=== PATIENT | male | born 1990 | race Caucasian/White ===

== ENCOUNTER 2016-10-10 22:27 | Emergency (ER) | payer OTHER ==
--- NOTE | 2016-10-11 02:00 | ED NURSING NOTES ---
Clinical Report - Nurses [facility] [address] [place] [address] 10/10/2016 22:30 Patient: VESTA POE TRIAGE Triage time 00:38. Acuity: LEVEL 4. Chief Complaint: DOG BITE. --00:48 Edmundo Kahn R.N. 00:38 10/11/16. BP: 116/65. HR: 50. RR: 16. O2 saturation: 100%. Temp: 97.5 F. Pain level now: 05/27. --00:48 Edmundo Kahn R.N. Weight: 90.7 kg stated. Height/Length: 71 inches Per Patient. BMI: 27.9. --00:45 Edmundo Kanh R.N. Medications None. --00:43 Edmundo Kahn R.N. Allergies No Known Drug Allergy. --00:43 Edmundo Kahn R.N. History Arrived by private vehicle. Historian: patient. ( Was trying to retrieved his dog back as it ran off to the neighbor's yard using a shock collar when the dog bit him on his right hand.). Location of injuries: dorsal left hand. This occurred just prior to arrival. Circumstances: This was a "provoked" attack. Patient approached the animal. The animal reportedly appeared well and is up to date on immunizations. 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 PAST MEDICAL HX: Negative. Tetanus status: unknown. SOCIAL HX: Light tobacco smoker- less than 1/2 a pack per day. Occasional alcohol use; consumes beer occasionally. --00:48 Edmundo Kahn R.N. Interventions ID band on patient. To room. --00:48 Edmundo Kahn R.N. PHYSICAL ASSESSMENT Ambulatory to room. GENERAL / NEURO / PSYCH: Alert. Oriented X 4. Appears in no acute distress. RESPIRATORY: Respirations not labored. Breath sounds within normal limits. CVS: Normal heart rate and rhythm. Pulses within normal limits. Capillary refill less than 2 seconds. EXTREMITIES: Dorsal right hand: multiple abrasions, laceration with controlled bleeding and multiple puncture wounds. SKIN: Skin is warm and dry. No signs or symptoms of infection. --00:49 Edmundo Kahn R.N. NURSING PROGRESS NOTES Call light placed in reach. Side rails up. Bed placed in lowest position. Brakes of bed on. Patient ready for evaluation- ED physician notified. --00:50 Edmundo Kahn R.N. 01:22 10/11/2016 Augmentin (Amoxicillin-Pot Clavulanate) PO Tablets 875 mg given. Allergies verified and confirmed 5 rights. --01:22 Melany Madison R.N. 01:40. Wound cleansed with sterile saline and chlorhexidine. Wound irrigated with 500 mL sterile NS using a high-pressure irrigation system; patient tolerated procedure well. --02:08 Jessica Obando. DISPOSITION / DISCHARGE Departure time: 0208. Condition at departure: improved and stable. No learning barriers present. Discharge instructions provided and reviewed with the patient. Reviewed medication(s) side effects, precautions, dosing and course information. Prescription(s) given to the patient. Work note given. Patient verbalized understanding. Written instructions provided in Upper Sorbian. The patient was discharged home and unaccompanied at time of discharge. He left the Emergency Department ambulatory and via private vehicle. Patient driving. --02:15 Melany Madison R.N. 02:13 10/11/16. BP: deferred. HR: deferred. RR: deferred. O2 saturation: deferred. Temp: deferred. Pain level now deferred. --02:15 Melany Madison R.N. Locked/Released at 10/11/2016 2:30 by Melany Madison R.N.
--- NOTE | 2016-10-11 02:00 | ED CLINICAL REPORT ---
Clinical Report - Physicians/Mid Levels [facility] [address] [place] [address] 10/10/2016 22:30 Patient: VESTA POE Time Seen: 0055. Arrived- By private vehicle. Historian- patient. HISTORY OF PRESENT ILLNESS Chief Complaint: DOG BITE. Location of injuries- right hand. The injury occurred just prior to arrival. The animal reportedly appeared well, is up to date on immunizations and can be observed for ten days. Occurred at home. (reports the dog's shock collar might not be working appropriately). No difficulty breathing. 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 REVIEW OF SYSTEMS The patient has had swelling. No numbness, weakness, tingling or chest pain. All systems otherwise negative, except as recorded above. PAST HISTORY See nurses notes. Tetanus immunization status is up-to-date. Problems: no known problems. Medications: None. Allergies: No Known Drug Allergy. SOCIAL HISTORY Never smoker. No alcohol use or drug use. Is a local resident. ADDITIONAL NOTES The nursing notes have been reviewed. PHYSICAL EXAM Vital Signs: 10/11/2016 00:38 BP: 116/65. HR: 50. RR: 16. O2 saturation: 100%. Temp: 97.5 F. Pain level now: 2/10. Blood pressure normal. Oxygen saturation normal. Appearance: Alert. Oriented X3. No acute distress. Head: Head normal on inspection and non-tender. No Velazquez's sign or raccoon eyes. Neck: Normal inspection. Neck non-tender. Painless ROM. CVS: Heart sounds normal. Pulses normal. Respiratory: Chest normal on inspection. Breath sounds normal. Chest nontender. Abdomen: Normal inspection. Soft and nontender. Bowel sounds normal. Skin: Skin intact. Skin warm and dry. Normal skin color. Normal skin turgor. Extremities: (superficial abrasions noted to the dorsum of the right hand. Small 0.5 cm laceration to the wrist with about involvement of the joint. Only subcutaneous tissue exposed. Able to see the base of the wound. No tendon involvement. Bleeding is controlled. No foreign bodies.). LABS, X-RAYS, AND EKG Rt Hand X-ray: (PROCEDURE: XR HAND 3 OR 4 VIEWS - RIGHT INDICATION: TRAUMA/INJURY TECHNIQUE: Three views COMPARISON: None. FINDINGS: There is mild soft tissue swelling of the dorsum of the hand but no radiopaque foreign body. No fracture or dislocation. Normal joint spaces. IMPRESSION: 1. Soft tissue swelling.). The X-rays were independently viewed by me and interpreted by the radiologist. The X-rays were discussed with the radiologist (via phone). PROGRESS AND PROCEDURES Course of Care: The patient is a pleasant 26-year-old male presented for a vaginal dogbite to the right hand. Patient will be evaluated for any osseous other maladies as a result of the patient's dog biting him. Patient is agreeable to the treatment and plan. no neurovascular compromise. Compartments are soft. The patient's workup was remarkable for the findings above. No acute osseous maladies noted. Because of the patient's negative radiograph and no radiopaque foreign bodies, do not fill further intervention is warranted at this time. Wounds have been irrigated emergency department. The small laceration noted on the patient's wrist should not be closed secondary to wound infection risk. On inspection, if the patient did have a stitch placed, would completely close the wound and predispose at 2 infection. Because of the patient's dogbite, Augmentin was provided here in the emergency department. On initial presentation pain medication as been offered but declined by the patient. Discussed with the patient is workup here in the emergency department including diagnosis, home care, follow-up, and return Also discussed wound infection risk. All questions have been answered. The patient expressed understanding of these instructions and was agreeable to them. Disposition: Discharged. Condition: good. CLINICAL IMPRESSION Multiple dog bites to the right wrist and right hand. Multiple deep lacerations to the left wrist and left hand. (acute). No foreign body present. INSTRUCTIONS Warnings: INFECTION: Watch for signs of infection (increasing heat and redness, pus-like drainage, swelling, or increased pain). Return or see your doctor if these signs occur. GENERAL WARNINGS: Return or contact your physician immediately if your condition worsens or changes unexpectedly, if not improving as expected, or if other problems arise. Specifically return if pain, vomiting, bleeding, breathing difficulty or fever. Your Current Medications: CONTINUE TAKING THE FOLLOWING MEDICATIONS: None*. Prescription Medications: Augmentin 875 mg: take 1 tablet orally every 12 hours for 10 days. No refill. Substitution is permissible. (disp 20 tabs) OTC Medications: Acetaminophen (available over the counter): take according to label instructions. Motrin (available over the counter): take according to label instructions. Follow-up: Return to the emergency department as needed. Follow up with your doctor in five days. Reason for referral: recheck today's concerns. Summary of care provided to patient via paper. Screening today revealed the patient's blood pressure to be in the normal range. The patient should follow up with a primary care provider for blood pressure management. Understanding of the discharge instructions verbalized by patient. (Electronically signed by Zeke Fernandes Dr. 10/14/2016 4:59)
--- NOTE | 2016-10-11 02:00 | ED ORDER SUMMARY ---
..... Patient: VESTA POE OrderSheet [facility] VisitID: [id number] [place] [address] 26y, M Registration Date/Time: 10/10/2016 ORDER SHEET Weight: 90.7 kg (stated) Allergies: No Known Drug Allergy GENERAL ORDERS: Hand 3 or 4V Right Urgent (01:02 10/11/2016 Erica Rogers) (Ack 1:04 Darwiner) (1:27 Toña) Irrigate Wounds (01:02 10/11/2016 Erica Rogers) (Ack 1:31 RCollier R.N.) (2:03 CBraduriah R.N.) Ice (01:02 10/11/2016 Erica Rogers) (Ack 1:31 RCollier R.N.) (2:03 CBradburn R.N.) MEDICATION ORDERS: Augmentin PO 875 mg (NOW) (01:07 10/11/2016 Erica Rogers) (Ack 1:20 CBradburn R.N.) (1:22 CBradburn R.N.) IV FLUIDS: ORDER SHEET NOTES: [Electronically signed by Melany Madison R.N. (02:30 10/11/2016)] [Electronically signed by Zeke Fernaneds Dr. (04:59 10/14/2016)] [Electronically locked/signed by Melany Madison R.N. (02:30 10/11/2016)]
--- NOTE | 2016-10-11 02:00 | ED ORDER SUMMARY ---
..... Patient: VESTA POE OrderSheet [facility] VisitID: [id number] [place] [address] 26y, M Registration Date/Time: 10/10/2016 ORDER SHEET Weight: 90.7 kg (stated) Allergies: No Known Drug Allergy GENERAL ORDERS: Hand 3 or 4V Right Urgent (01:02 10/11/2016 Erica Rogers) (Ack 1:04 Darwiner) (1:27 Toña) Irrigate Wounds (01:02 10/11/2016 Erica Rogers) (Ack 1:31 RCollier R.N.) (2:03 CBraduriah R.N.) Ice (01:02 10/11/2016 Erica Rogers) (Ack 1:31 RCollier R.N.) (2:03 CBradburn R.N.) MEDICATION ORDERS: Augmentin PO 875 mg (NOW) (01:07 10/11/2016 Erica Rogers) (Ack 1:20 CBradburn R.N.) (1:22 CBradburn R.N.) IV FLUIDS: ORDER SHEET NOTES: [Electronically signed by Melany Madison R.N. (02:30 10/11/2016)] [Electronically signed by Zeke Fernandes Dr. (04:59 10/14/2016)] [Electronically locked/signed by Melany Madison R.N. (02:30 10/11/2016)]
--- NOTE | 2016-10-11 02:00 | ED NURSING NOTES ---
Clinical Report - Nurses [facility] [address] [place] [address] 10/10/2016 22:30 Patient: VESTA POE TRIAGE Triage time 00:38. Acuity: LEVEL 4. Chief Complaint: DOG BITE. --00:48 Edmundo Kahn R.N. 00:38 10/11/16. BP: 116/65. HR: 50. RR: 16. O2 saturation: 100%. Temp: 97.5 F. Pain level now: 05/27. --00:48 Edmundo Kahn R.N. Weight: 90.7 kg stated. Height/Length: 71 inches Per Patient. BMI: 27.9. --00:45 Edmundo Kahn R.N. Medications None. --00:43 Edmundo Kahn R.N. Allergies No Known Drug Allergy. --00:43 Edmundo Kahn R.N. History Arrived by private vehicle. Historian: patient. ( Was trying to retrieved his dog back as it ran off to the neighbor's yard using a shock collar when the dog bit him on his right hand.). Location of injuries: dorsal left hand. This occurred just prior to arrival. Circumstances: This was a "provoked" attack. Patient approached the animal. The animal reportedly appeared well and is up to date on immunizations. 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 PAST MEDICAL HX: Negative. Tetanus status: unknown. SOCIAL HX: Light tobacco smoker- less than 1/2 a pack per day. Occasional alcohol use; consumes beer occasionally. --00:48 Edmundo Kahn R.N. Interventions ID band on patient. To room. --00:48 Edmundo Kahn R.N. PHYSICAL ASSESSMENT Ambulatory to room. GENERAL / NEURO / PSYCH: Alert. Oriented X 4. Appears in no acute distress. RESPIRATORY: Respirations not labored. Breath sounds within normal limits. CVS: Normal heart rate and rhythm. Pulses within normal limits. Capillary refill less than 2 seconds. EXTREMITIES: Dorsal right hand: multiple abrasions, laceration with controlled bleeding and multiple puncture wounds. SKIN: Skin is warm and dry. No signs or symptoms of infection. --00:49 Edmundo Kahn R.N. NURSING PROGRESS NOTES Call light placed in reach. Side rails up. Bed placed in lowest position. Brakes of bed on. Patient ready for evaluation- ED physician notified. --00:50 Edmundo Kahn R.N. 01:22 10/11/2016 Augmentin (Amoxicillin-Pot Clavulanate) PO Tablets 875 mg given. Allergies verified and confirmed 5 rights. --01:22 Melany Madison R.N. 01:40. Wound cleansed with sterile saline and chlorhexidine. Wound irrigated with 500 mL sterile NS using a high-pressure irrigation system; patient tolerated procedure well. --02:08 Jessica Obando. DISPOSITION / DISCHARGE Departure time: 0208. Condition at departure: improved and stable. No learning barriers present. Discharge instructions provided and reviewed with the patient. Reviewed medication(s) side effects, precautions, dosing and course information. Prescription(s) given to the patient. Work note given. Patient verbalized understanding. Written instructions provided in Malay. The patient was discharged home and unaccompanied at time of discharge. He left the Emergency Department ambulatory and via private vehicle. Patient driving. --02:15 Melany Madison R.N. 02:13 10/11/16. BP: deferred. HR: deferred. RR: deferred. O2 saturation: deferred. Temp: deferred. Pain level now deferred. --02:15 Melany Madison R.N. Locked/Released at 10/11/2016 2:30 by Melany Madison R.N.
--- NOTE | 2016-10-11 05:57 | DIAGNOSTIC IMAGING REPORT ---
PROCEDURE: XR HAND 3 OR 4 VIEWS - RIGHT INDICATION: TRAUMA/INJURY TECHNIQUE: Three views COMPARISON: None. FINDINGS: There is mild soft tissue swelling of the dorsum of the hand but no radiopaque foreign body. No fracture or dislocation. Normal joint spaces. IMPRESSION: 1. Soft tissue swelling.
--- NOTE | 2016-10-14 05:00 | ED MAR SUMMARY ---
..... Medication Administration Record [facility] [address] [place] [address] Patient: VESTA POE Visit ID: [id number] 26y, M Weight: 90.7 kg Height/Length: 71 in BMI: 27.9 ALLERGIES: No Known Drug Allergy Given 01:22 10/11/2016 Melany Madison R.N. Medication Administered: AUGMENTIN [PO] (AMOXICILLIN-POT CLAVULANATE), Dose: 875 mg Tablets PO. Medication Ordered: Augmentin PO 875 mg (NOW).
--- NOTE | 2016-10-14 05:00 | ED DISCHARGE INSTRUCTIONS ---
Patient: VESTA POE General Instructions [facility]ly [facility] VisitID: [id number] [place] [address] 26y, M Registration Date/Time: 10/10/2016 Multiple dog bites to the right wrist and right hand. Multiple deep lacerations to the left wrist and left hand. (acute). No foreign body present. INSTRUCTIONS Warnings: INFECTION: Watch for signs of infection (increasing heat and redness, pus-like drainage, swelling, or increased pain). Return or see your doctor if these signs occur. GENERAL WARNINGS: Return or contact your physician immediately if your condition worsens or changes unexpectedly, if not improving as expected, or if other problems arise. Specifically return if pain, vomiting, bleeding, breathing difficulty or fever. Your Current Medications: CONTINUE TAKING THE FOLLOWING MEDICATIONS: None*. Prescription Medications: Augmentin 875 mg: take 1 tablet orally every 12 hours for 10 days. No refill. Substitution is permissible. (disp 20 tabs) OTC Medications: Acetaminophen (available over the counter): take according to label instructions. Motrin (available over the counter): take according to label instructions. Follow-up: Return to the emergency department as needed. Follow up with your doctor in five days. Reason for referral: recheck today's concerns. Summary of care provided to patient via paper. Screening today revealed the patient's blood pressure to be in the normal range. The patient should follow up with a primary care provider for blood pressure management. Understanding of the discharge instructions verbalized by patient. ADDITIONAL INFORMATION Dog Bite If a dog has bitten you and the wound is deep enough to break the skin, an infection may occur. Therefore, you should watch for the warning signs listed below. The doctor may not close the wound completely. This is to allow fluid to drain in the event of an infection. Home Care Watch the wound for signs of infection listed below. In certain types of bites, antibiotics may be prescribed. Begin taking these as soon as possible, as directed until they are all gone. Rabies Prevention If you live in an area where rabies occurs in wild animals, the rabies virus can be passed to cats and dogs. An infected animal can pass the rabies virus to you during a bite. If ahealthy-looking pet dog has bitten you, it should be kept in a secure area for the next 10 days to watch for signs of illness. If the pet optical advisor wont cooperate with you, contact the [facility] animal control department (or local law enforcement). If the animal becomes ill or dies [id number] days, contact your animal control department at once. The animal must be tested for rabies. If the animal stays healthy for the next 10 days, then there is no danger of rabies in the dog or you. Pets fully vaccinated against rabies (2 shots) are at very low risk for the infection. However, because human rabies is almost always fatal, any biting dog should be kept in confinement for 10 days as an extra precaution. If a stray dog bit you, contact the animal control department. They can provide information on capture, quarantine, and animal rabies testing. If you are unable to locate the animal that bit you in the next 2days, and if rabies exists in your region, you must be evaluated for the rabies vaccine series. Contact your doctor or return here promptly. All animal bites should be reported to the [facility] animal control department. If you were not given a form to fill out, you can report it yourself by calling. Follow Up with your doctor as advised. Most skin wounds heal within 10 days. However, an infection may occur even with proper treatment. Check your woundevery 6 hoursfor 2 days, then at least once a day for the next two days for the signs of infection listed below. Get Prompt Medical Attention if any of the following occur: Signs of infection: Spreading redness Increased pain or swelling Fever of 100.4F (38C) or higher, or as directed by your healthcare provider Colored fluid or pus draining from the wound Headache, confusion, strange behavior, or a seizure (signs of a rabies infection) Laceration (All Closures) Alaceration is a cut through the skin. This will usually require stitches (sutures) or long if it is deep. Minor cuts may be treated with a surgical tape closure orskin glue. Home care The following guidelines will help you care for your laceration at home: Extremity, face, or trunk wounds Keep the wound clean and dry. If a bandage was applied and it becomes wet or dirty, replace it. Otherwise, leave it in place for the first 24 hours. If stitches or long were used, clean the wound daily. After removing the bandage, wash the area with soap and water. Use a wet cotton swab to loosen and remove any blood or crust that forms. The doctor may prescribe an antibiotic cream or ointment to prevent infection. Do not stop taking this medication until you have finished the prescribed course or the doctor tells you to stop. The doctor may also prescribe medications for pain. Follow the doctors instructions for taking these medications. You may remove the bandage to shower as usual after the first 24 hours, but do not soak the area in water (no swimming) until the stitches or long are removed. If surgical tape was used, keep the area clean and dry. If it becomes wet, blot it dry with a towel. If skin glue was used, do not scratch, rub, or pick at the adhesive film. Do not place tape directly over the film. Do not apply liquid, ointment, or creams to the wound while the film is in place. Do not clean the wound with peroxide and do not apply ointments. Avoid activities that cause heavy sweating until the film has fallen off. Protect the wound from prolonged exposure to sunlight or tanning lamps. You may shower as usual but do not soak the wound in water (no baths or swimming). The film will fall off by itself in 510 days. Scalp wounds During the first two days, you may carefully rinse your hair in the shower to remove blood, glass or dirt particles. After two days, you may shower and shampoo your hair normally. Do not soak your scalp in the tub or go swimming until the stitches or long have been removed. Talk with your doctor before applying any antibiotic ointment to the wound. Mouth wounds Eat soft foods to reduce pain. If the cut is inside of your mouth, clean by rinsing after each meal and at bedtime with a mixture of equal parts water and hydrogen peroxide (do not swallow!). Or, you can use a cotton swab to directly apply hydrogen peroxide onto the cut. Mouth wounds can be painful when eating. You may use an [id number] local numbing solution for pain relief. If this is not available, you may use any numbing solution for teething babies. You may apply this directly to the sores with a cotton-tip swab or with your finger. Follow-up care Follow up with your health care provider. Most skin wounds heal within ten days. Mouth and facial wounds heal within five days. However, even with proper treatment, a wound infection may sometimes occur. Therefore, you should check the wound daily for signs of infection listed below. Stitches should be removed from the face within five days; stitches and long should be removed from other parts of the body within 714 days. If dissolving stitches were used in the mouth, these will fall out or dissolve without the need for removal. If tape closures were used, remove them yourself if they have not fallen off after 7 days. Ifskin glue was used, the film will fall off by itself in 510 days. When to seek medical care Get prompt medical attention if any of these occur: Bleeding not controlled by direct pressure Signs of infection, including increasing pain in the wound, increasing wound redness or swelling, or pus coming from the wound Fever of 100.4F (38C) or higher, or as directed by your health care provider Stitches or long come apart or fall out or surgical tape falls off before 7 days Wound edges re-open Amoxicillin Trihydrate, Clavulanate Potassium Oral tablet What is this medicine? AMOXICILLIN; CLAVULANIC ACID (a mox i KARAN in; KLAbdio frances ic id) is a penicillin antibiotic. It is used to treat certain kinds of bacterial infections. It will not work for colds, flu, or other viral infections. How should I use this medicine? Take this medicine by mouth with a full glass of water. Follow the directions on the prescription label. Take at the start of a meal. Do not crush or chew. If the tablet has a score line, you may cut it in half at the score line for easier swallowing. Take your medicine at regular intervals. Do not take your medicine more often than directed. Take all of your medicine as directed even if you think you are better. Do not skip doses or stop your medicine early. Talk to your hogshead opener regarding the use of this medicine in children. Special care may be needed. What side effects may I notice from receiving this medicine? Side effects that you should report to your doctor or health patient care representative as soon as possible: allergic reactions like skin rash, itching or hives, swelling of the face, lips, or tongue breathing problems dark urine fever or chills, sore throat redness, blistering, peeling or loosening of the skin, including inside the mouth seizures trouble passing urine or change in the amount of urine unusual bleeding, bruising unusually weak or tired white patches or sores in the mouth or throat Side effects that usually do not require medical attention (report to your doctor or health patient care representative if they continue or are bothersome): diarrhea dizziness headache nausea, vomiting stomach upset vaginal or anal irritation What may interact with this medicine? allopurinol anticoagulants control pills methotrexate probenecid What if I miss a dose? If you miss a dose, take it as soon as you can. If it is almost time for your next dose, take only that dose. Do not take double or extra doses. Where should I keep my medicine? Keep out of the reach of children. Store at room temperature below 25 degrees C (77 degrees F). Keep container tightly closed. Throw away any unused medicine after the expiration date. What should I tell my health care provider before I take this medicine? They need to know if you have any of these conditions: bowel disease, like colitis kidney disease liver disease mononucleosis an unusual or allergic reaction to amoxicillin, penicillin, cephalosporin, other antibiotics, clavulanic acid, other medicines, foods, dyes, or preservatives or trying to get breast-feeding What should I watch for while using this medicine? Tell your doctor or health patient care representative if your symptoms do not improve. Do not treat diarrhea with over the counter products. Contact your doctor if you have diarrhea that lasts more than 2 days or if it is severe and watery. If you have diabetes, you may get a false-positive result for sugar in your urine. Check with your doctor or health patient care representative. control pills may not work properly while you are taking this medicine. Talk to your doctor about using an extra method of control. You have been given the following additional information: Dog Bite Laceration, All Amoxicillin Trihydrate, Clavulanate Potassium Oral tablet (Electronically signed by Zeke Fernandes Dr. 10/14/2016 4:59)
--- NOTE | 2016-10-14 05:00 | ED MED RECONCILIATION SUMMARY ---
Patient: VESTA POE Medication Reconciliation Report [facility] VisitID: [id number] [place] [address] 26y, M Registration Date/Time: 10/10/2016 Weight: 90.7 kg Height/Length: 71 in. BMI: 27.9 ALLERGIES: No Known Drug Allergy The patient's Home Medications are listed below: NONE. The source(s) of the original Home Medication information: Not obtained. The following Medications were given to the patient in the Emergency Department: Augmentin [PO] PO 875 mg, administered: 10/11/2016 1:22:00 AM The following Medications were prescribed to the patient: Acetaminophen (available over the counter): take according to label instructions. -- Zeke Fernandes Dr. Motrin (available over the counter): take according to label instructions. -- Zeke Fernandes Dr. Augmentin 875 mg: take 1 tablet orally every 12 hours for 10 days. No refill. Substitution is permissible.(disp 20 tabs) -- Zeke Fernandes Dr.
--- NOTE | 2016-10-14 05:00 | ED MAR SUMMARY ---
..... Medication Administration Record [facility] [address] [address] Patient: VESTA POE Visit ID: [id number] 26y, M Weight: 90.7 kg Height/Length: 71 in BMI: 27.9 ALLERGIES: No Known Drug Allergy Given 01:22 10/11/2016 Melany Madison R.N. Medication Administered: AUGMENTIN [PO] (AMOXICILLIN-POT CLAVULANATE), Dose: 875 mg Tablets PO. Medication Ordered: Augmentin PO 875 mg (NOW).
--- NOTE | 2016-10-14 05:00 | ED DISCHARGE INSTRUCTIONS ---
Patient: VESTA POE General Instructions [facility] VisitID: [id number] [place] [address] 26y, M Registration Date/Time: 10/10/2016 Multiple dog bites to the right wrist and right hand. Multiple deep lacerations to the left wrist and left hand. (acute). No foreign body present. INSTRUCTIONS Warnings: INFECTION: Watch for signs of infection (increasing heat and redness, pus-like drainage, swelling, or increased pain). Return or see your doctor if these signs occur. GENERAL WARNINGS: Return or contact your physician immediately if your condition worsens or changes unexpectedly, if not improving as expected, or if other problems arise. Specifically return if pain, vomiting, bleeding, breathing difficulty or fever. Your Current Medications: CONTINUE TAKING THE FOLLOWING MEDICATIONS: None*. Prescription Medications: Augmentin 875 mg: take 1 tablet orally every 12 hours for 10 days. No refill. Substitution is permissible. (disp 20 tabs) OTC Medications: Acetaminophen (available over the counter): take according to label instructions. Motrin (available over the counter): take according to label instructions. Follow-up: Return to the emergency department as needed. Follow up with your doctor in five days. Reason for referral: recheck today's concerns. Summary of care provided to patient via paper. Screening today revealed the patient's blood pressure to be in the normal range. The patient should follow up with a primary care provider for blood pressure management. Understanding of the discharge instructions verbalized by patient. ADDITIONAL INFORMATION Dog Bite If a dog has bitten you and the wound is deep enough to break the skin, an infection may occur. Therefore, you should watch for the warning signs listed below. The doctor may not close the wound completely. This is to allow fluid to drain in the event of an infection. Home Care Watch the wound for signs of infection listed below. In certain types of bites, antibiotics may be prescribed. Begin taking these as soon as possible, as directed until they are all gone. Rabies Prevention If you live in an area where rabies occurs in wild animals, the rabies virus can be passed to cats and dogs. An infected animal can pass the rabies virus to you during a bite. If ahealthy-looking pet dog has bitten you, it should be kept in a secure area for the next 10 days to watch for signs of illness. If the pet airport ramp attendant wont cooperate with you, contact the [facility] animal control department (or local law enforcement). If the animal becomes ill or dies [id number] days, contact your animal control department at once. The animal must be tested for rabies. If the animal stays healthy for the next 10 days, then there is no danger of rabies in the dog or you. Pets fully vaccinated against rabies (2 shots) are at very low risk for the infection. However, because human rabies is almost always fatal, any biting dog should be kept in confinement for 10 days as an extra precaution. If a stray dog bit you, contact the animal control department. They can provide information on capture, quarantine, and animal rabies testing. If you are unable to locate the animal that bit you in the next 2days, and if rabies exists in your region, you must be evaluated for the rabies vaccine series. Contact your doctor or return here promptly. All animal bites should be reported to the [facility] animal control department. If you were not given a form to fill out, you can report it yourself by calling. Follow Up with your doctor as advised. Most skin wounds heal within 10 days. However, an infection may occur even with proper treatment. Check your woundevery 6 hoursfor 2 days, then at least once a day for the next two days for the signs of infection listed below. Get Prompt Medical Attention if any of the following occur: Signs of infection: Spreading redness Increased pain or swelling Fever of 100.4F (38C) or higher, or as directed by your healthcare provider Colored fluid or pus draining from the wound Headache, confusion, strange behavior, or a seizure (signs of a rabies infection) Laceration (All Closures) Alaceration is a cut through the skin. This will usually require stitches (sutures) or long if it is deep. Minor cuts may be treated with a surgical tape closure orskin glue. Home care The following guidelines will help you care for your laceration at home: Extremity, face, or trunk wounds Keep the wound clean and dry. If a bandage was applied and it becomes wet or dirty, replace it. Otherwise, leave it in place for the first 24 hours. If stitches or long were used, clean the wound daily. After removing the bandage, wash the area with soap and water. Use a wet cotton swab to loosen and remove any blood or crust that forms. The doctor may prescribe an antibiotic cream or ointment to prevent infection. Do not stop taking this medication until you have finished the prescribed course or the doctor tells you to stop. The doctor may also prescribe medications for pain. Follow the doctors instructions for taking these medications. You may remove the bandage to shower as usual after the first 24 hours, but do not soak the area in water (no swimming) until the stitches or long are removed. If surgical tape was used, keep the area clean and dry. If it becomes wet, blot it dry with a towel. If skin glue was used, do not scratch, rub, or pick at the adhesive film. Do not place tape directly over the film. Do not apply liquid, ointment, or creams to the wound while the film is in place. Do not clean the wound with peroxide and do not apply ointments. Avoid activities that cause heavy sweating until the film has fallen off. Protect the wound from prolonged exposure to sunlight or tanning lamps. You may shower as usual but do not soak the wound in water (no baths or swimming). The film will fall off by itself in 510 days. Scalp wounds During the first two days, you may carefully rinse your hair in the shower to remove blood, glass or dirt particles. After two days, you may shower and shampoo your hair normally. Do not soak your scalp in the tub or go swimming until the stitches or long have been removed. Talk with your doctor before applying any antibiotic ointment to the wound. Mouth wounds Eat soft foods to reduce pain. If the cut is inside of your mouth, clean by rinsing after each meal and at bedtime with a mixture of equal parts water and hydrogen peroxide (do not swallow!). Or, you can use a cotton swab to directly apply hydrogen peroxide onto the cut. Mouth wounds can be painful when eating. You may use an [id number] local numbing solution for pain relief. If this is not available, you may use any numbing solution for teething babies. You may apply this directly to the sores with a cotton-tip swab or with your finger. Follow-up care Follow up with your health care provider. Most skin wounds heal within ten days. Mouth and facial wounds heal within five days. However, even with proper treatment, a wound infection may sometimes occur. Therefore, you should check the wound daily for signs of infection listed below. Stitches should be removed from the face within five days; stitches and long should be removed from other parts of the body within 714 days. If dissolving stitches were used in the mouth, these will fall out or dissolve without the need for removal. If tape closures were used, remove them yourself if they have not fallen off after 7 days. Ifskin glue was used, the film will fall off by itself in 510 days. When to seek medical care Get prompt medical attention if any of these occur: Bleeding not controlled by direct pressure Signs of infection, including increasing pain in the wound, increasing wound redness or swelling, or pus coming from the wound Fever of 100.4F (38C) or higher, or as directed by your health care provider Stitches or long come apart or fall out or surgical tape falls off before 7 days Wound edges re-open Amoxicillin Trihydrate, Clavulanate Potassium Oral tablet What is this medicine? AMOXICILLIN; CLAVULANIC ACID (a mox i KARAN in; KLAbdio frances ic id) is a penicillin antibiotic. It is used to treat certain kinds of bacterial infections. It will not work for colds, flu, or other viral infections. How should I use this medicine? Take this medicine by mouth with a full glass of water. Follow the directions on the prescription label. Take at the start of a meal. Do not crush or chew. If the tablet has a score line, you may cut it in half at the score line for easier swallowing. Take your medicine at regular intervals. Do not take your medicine more often than directed. Take all of your medicine as directed even if you think you are better. Do not skip doses or stop your medicine early. Talk to your blower mechanic regarding the use of this medicine in children. Special care may be needed. What side effects may I notice from receiving this medicine? Side effects that you should report to your doctor or health healthcare manager as soon as possible: allergic reactions like skin rash, itching or hives, swelling of the face, lips, or tongue breathing problems dark urine fever or chills, sore throat redness, blistering, peeling or loosening of the skin, including inside the mouth seizures trouble passing urine or change in the amount of urine unusual bleeding, bruising unusually weak or tired white patches or sores in the mouth or throat Side effects that usually do not require medical attention (report to your doctor or health healthcare manager if they continue or are bothersome): diarrhea dizziness headache nausea, vomiting stomach upset vaginal or anal irritation What may interact with this medicine? allopurinol anticoagulants control pills methotrexate probenecid What if I miss a dose? If you miss a dose, take it as soon as you can. If it is almost time for your next dose, take only that dose. Do not take double or extra doses. Where should I keep my medicine? Keep out of the reach of children. Store at room temperature below 25 degrees C (77 degrees F). Keep container tightly closed. Throw away any unused medicine after the expiration date. What should I tell my health care provider before I take this medicine? They need to know if you have any of these conditions: bowel disease, like colitis kidney disease liver disease mononucleosis an unusual or allergic reaction to amoxicillin, penicillin, cephalosporin, other antibiotics, clavulanic acid, other medicines, foods, dyes, or preservatives or trying to get breast-feeding What should I watch for while using this medicine? Tell your doctor or health healthcare manager if your symptoms do not improve. Do not treat diarrhea with over the counter products. Contact your doctor if you have diarrhea that lasts more than 2 days or if it is severe and watery. If you have diabetes, you may get a false-positive result for sugar in your urine. Check with your doctor or health healthcare manager. control pills may not work properly while you are taking this medicine. Talk to your doctor about using an extra method of control. You have been given the following additional information: Dog Bite Laceration, All Amoxicillin Trihydrate, Clavulanate Potassium Oral tablet (Electronically signed by Zeke Fernandes Dr. 10/14/2016 4:59)
--- NOTE | 2016-10-14 05:00 | ED MED RECONCILIATION SUMMARY ---
Patient: VESTA POE Medication Reconciliation Report [facility] VisitID: [id number] [place] [address] 26y, M Registration Date/Time: 10/10/2016 Weight: 90.7 kg Height/Length: 71 in. BMI: 27.9 ALLERGIES: No Known Drug Allergy The patient's Home Medications are listed below: NONE. The source(s) of the original Home Medication information: Not obtained. The following Medications were given to the patient in the Emergency Department: Augmentin [PO] PO 875 mg, administered: 10/11/2016 1:22:00 AM The following Medications were prescribed to the patient: Acetaminophen (available over the counter): take according to label instructions. -- Zeke Fernandes Dr. Motrin (available over the counter): take according to label instructions. -- Zeke Fernandes Dr. Augmentin 875 mg: take 1 tablet orally every 12 hours for 10 days. No refill. Substitution is permissible.(disp 20 tabs) -- Zeke Fernandes Dr.
== END 2016-10-11 02:08 | disposition home or self-care (01) ==
LOC: ED SRH 22:27
DX: S61.451A Open bite of right hand, initial encounter (principal); S61.551A Open bite of right wrist, initial encounter; S61.512A Laceration without foreign body of left wrist, initial encounter; S61.412A Laceration without foreign body of left hand, initial encounter; W54.0XXA Bitten by dog, initial encounter; Y92.019 Unspecified place in single-family (private) house as the place of occurrence of the external cause; Y99.9 Unspecified external cause status